=== PATIENT | female | born 1945 | race Caucasian/White ===

== ENCOUNTER → 2019-03-04 | Outpatient (CLI) | payer MEDICARE ==
--- NOTE | 2019-03-04 15:36 | CTL ---
EXAMINATION TYPE: CT Low Dose Lung DATE OF EXAM ORDERED: 03/04/2019 HISTORY: . Lung cancer screening CT DLP: 143.[address] CTDI: 4 mGy Automated exposure control for dose reduction was used. SCREENING VISIT: Initial COMPARISON: None TECHNIQUE: Low dose computed tomography scan was performed through the chest at 1 mm thick sections a nd reconstructed images in the coronal plane at [address] DIAGNOSTIC QUALITY: Satisfactory FINDINGS: LUNG NODULES: None. There is some minimal pneumonitis change within the lingula. Series 4 image 171. LUNGS: COPD: Severity: None Fibrosis: Severity: None Lymph nodes: None Other findings: None RIGHT PLEURAL SPACE: Effusion: None Calcification: None Thickening: None Pneumothorax: None LEFT PLEURAL SPACE: Effusion: None Calcification: None Thickening: None Pneumothorax: None HEART: Heart Size: Normal Coronary calcification: Mild Pericardial effusion: None OTHER FINDINGS: Upper abdomen: Except obtained the abdominal aorta, see below, upper abdomen is unremarkable. Bony thorax: Normal Supraclavicular region: Normal Other: Ascending thoracic aorta at the level the main pulmonary artery measures 4.0 cm. The main pul monary artery at the bifurcation measures 3.5 cm. Aorta at the aortic root is 4.2 cm. Aorta at the l evel of the main pulmonary artery is 4.0 cm. Aorta at the mid aortic arch is 3.5 cm. At the proximal descending thoracic aorta there is some aneurysmal dilatation measuring 5.7 cm. This narrows at the l evel of the diaphragm to 3.3 cm dimension. Below the diaphragm at the level of the renal arteries and just inferior to the superior mesenteric artery the abdominal aorta becomes aneurysmal again this me asures 6.5 cm in AP dimension. Aorta extends out of the [id number]. Additional workup of the thora cic and abdominal aortic aneurysms is recommended. IMPRESSION: 1. No suspicious acute changes to suggest neoplasm. 2. Abdominal aortic aneurysm and thoracic aortic aneurysm. Additional workup with CTA is recommended. FOLLOW UP CT CHEST RECOMMENDATION: CTA chest and abdomen for evaluation of the thoracic and abdominal aortic aneurysms. Follow-up screening low-dose CT chest is recommended in one year as well. CT LUNG RAD: Lung-Rad 1 Negative
== END | disposition home or self-care (01) ==
LOC: RADCTMAIN 11:12
PROVIDERS: ATTEND Family Medicine
DX: Z12.2 Encounter for screening for malignant neoplasm of respiratory organs (principal); I71.4 Abdominal aortic aneurysm, without rupture; I71.2 Thoracic aortic aneurysm, without rupture; F17.210 Nicotine dependence, cigarettes, uncomplicated